=== PATIENT | female | born 2000 | race African-American/Black ===

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

== ENCOUNTER 2022-10-24 09:49 | Emergency (ER) | payer OTHER ==
[2022-10-24 10:01] VITALS: BP 103/65; PULSE 78; RESP 18; TEMP 98.6; BMI 20.3
== END 2022-10-24 10:49 | disposition home or self-care (01) ==
LOC: JER 09:49 → JERFT 09:49
DX: N76.4 Abscess of vulva (principal)
CPT/HCPCS: 99282-25

== ENCOUNTER 2022-12-09 01:26 | Emergency (ER) | payer SELFPAY ==
[2022-12-09 02:06] VITALS: BP 99/58; PULSE 77; RESP 18; TEMP 98.7; BMI 20.3
== END 2022-12-09 03:18 | disposition home or self-care (01) ==
LOC: JER 01:26
DX: N76.4 Abscess of vulva (principal)
CPT/HCPCS: 99283-25

== ENCOUNTER 2023-05-15 12:18 | Emergency (ER) | payer OTHER ==
[2023-05-15 12:41] VITALS: BP 104/55; PULSE 98; RESP 20; TEMP 97.9; BMI 21.4
== END 2023-05-15 14:06 | disposition home or self-care (01) ==
LOC: JERFT 12:18
DX: R05.9 Cough, unspecified (principal); R09.81 Nasal congestion; J30.2 Other seasonal allergic rhinitis; Z20.822 Contact with and (suspected) exposure to COVID-19
CPT/HCPCS: 0241U-QW; 99283-25